=== PATIENT | male | born 1990 ===

== ENCOUNTER 2017-07-01 08:37 | Outpatient (CLI) | payer OTHER ==
[~2017-07-01 08:37] MED LIST: BUCALSEP SPRAY30 ML MM; BUSPIRONE HCL10 MG; CLONAZEPAM0.5 MG; ZOLOFT100 MG
== END 2017-07-01 08:46 | disposition home or self-care (01) ==
LOC: LAB 08:37
DX: D64.9 Anemia, unspecified (principal); E86.0 Dehydration; E56.9 Vitamin deficiency, unspecified